=== PATIENT | female | born 1965 ===

== ENCOUNTER 2025-04-19 12:10 | Inpatient (IN) | payer OTHER ==
[~2025-04-19] VITALS: Ht 160 cm; Wt 98.9 kg
[2025-04-19] MEDS ORDERED: COZAAR100 MG PO (13:37)
[2025-04-19] MEDS ORDERED: GLIMEPIRIDE4 M1 PO (13:37)
[2025-04-19] MEDS ORDERED: METFORMIN HCL850 M1 PO (13:37)
[2025-04-19] MEDS ORDERED: HYDROCHLOROTH12.5 M2 PO (13:38)
[2025-04-19] MEDS ORDERED: ZOCOR20 MG PO (13:38)
[2025-04-19] MEDS ORDERED: HORIZANT300 MG PO (13:38)
[2025-04-19] MEDS ORDERED: TRAZODONE HCL150 MG PO (13:38)
[2025-04-19] MEDS ORDERED: ACTOS15 MG PO (13:39)
[2025-04-19] MEDS ORDERED: ACID REDUCER20 M1 PO (13:39)
[2025-04-19] MEDS ORDERED: TOPROL XL25 M1 PO (13:39)
[2025-04-19] MEDS ORDERED: REGLAN5 MG/5 ML PO (13:39)
[2025-05-03] MEDS ORDERED: METRONIDAZOLE/SODIUM CHLORIDE 500 MG/100 ML PIGGYBACK IV ONE (11:26)
[2025-05-03] MEDS ORDERED: CEFTRIAXONE SODIUM 2,000 MG VIAL ONE (11:26)
[2025-05-03] MEDS ORDERED: RINGERS SOLUTION,LACTATED 1,000 ML IV SCH (13:45)
[2025-05-03] MEDS ORDERED: OxyCODONE HCL 5 MG TABLET (ROXICODONE) PO PRN (13:45)
[2025-05-03] MEDS ORDERED: ONDANSETRON HCL 2 MG/ML VIAL IV PRN (13:45)
[2025-05-03] MEDS ORDERED: MORPHINE SULFATE 4 MG/ML VIAL IV PRN (13:45)
[2025-05-03] MEDS ORDERED: ACETAMINOPHEN 500 MG GEL..CAP PO SCH (14:00)
[2025-05-03] MEDS ORDERED: BUPIVACAINE HCL 30 ML VIAL IJ ONE (15:00)
[2025-05-03] MEDS ORDERED: LIDOCAINE HCL 1%/EPINEPHRINE 20ML VIAL IJ ONE (15:00)
[2025-05-03] MEDS ORDERED: HYOSCYAMINE SULFATE 0.125 MG TAB.SUBL SL SCH (17:00)
[2025-05-03] MEDS ORDERED: SIMETHICONE 125 MG CAPSULE PO SCH (17:00)
[2025-05-03] MEDS ORDERED: POLYETHYLENE GLYCOL 3350 17 GM BLIST.PACK PO SCH (17:00)
[2025-05-03] MEDS ORDERED: METOCLOPRAMIDE HCL 5 MG/ML VIAL IV SCH (17:00)
[2025-05-03] MEDS ORDERED: GABAPENTIN 300 MG CAPSULE PO SCH (17:00)
[2025-05-03] MEDS ORDERED: LEVALBUTEROL HCL 0.63 MG/3 ML SOLUTION IH SCH (18:53)
[2025-05-03] MEDS ORDERED: INSULIN LISPRO 1,000 UNIT/10 ML UNITS SUBCUTANEO PRN (19:00)
[2025-05-03] MEDS ORDERED: ENALAPRILAT DIHYDRATE 1.25 MG/ML VIAL IV PRN (19:00)
[2025-05-03] MEDS ORDERED: DEXTROSE 50 % IN WATER 0.5 G/ML DISP.SYRIN IV PRN (19:00)
[2025-05-03] MEDS ORDERED: ENALAPRILAT DIHYDRATE 1.25 MG/ML VIAL IV ONE (19:37)
[2025-05-03 19:55] LABS: BASO % 0.2 % (0.1-1.2); EOS # 0.02 (0.04-0.54); EOS % 0.1 % (0.7-7.0); LYMPH # 1.42 (1.18-3.74); LYMPH % 8.1 % (19.3-53.1); MEAN PLATELET VOLUME 9.50 fl (9.4-12.4); MONO # 0.76 (0.24-0.82); MONO % 4.3 % (4.7-12.5); NEUT # 15.27 (1.56-6.13); NEUT % 86.9 % (34.0-71.1); RED CELL DISTRIBUTION WIDTH 14.5 % (11.6-14.4)
[2025-05-03] MEDS ORDERED: CELECOXIB 200 MG CAPSULE PO SCH (21:00)
[2025-05-03] MEDS ORDERED: FAMOTIDINE/PF 20 MG/2 ML VIAL IV PUSH SCH (21:00)
[2025-05-03] MEDS ORDERED: INSULIN LISPRO 1,000 UNIT/10 ML UNITS SUBCUTANEO ONE (21:43)
[2025-05-03] MEDS ORDERED: ONDANSETRON HCL 2 MG/ML VIAL ONE (21:59)
[2025-05-03] MEDS ORDERED: FAMOTIDINE/PF 20 MG/2 ML VIAL ONE (22:41)
[2025-05-04] MEDS ORDERED: METOCLOPRAMIDE HCL 5 MG/ML VIAL ONE (00:02)
[2025-05-04] MEDS ORDERED: GABAPENTIN 300 MG CAPSULE PO ONE (00:03)
[2025-05-04] MEDS ORDERED: ACETAMINOPHEN 500 MG GEL..CAP PO ONE (00:03)
[2025-05-04] MEDS ORDERED: INSULIN LISPRO 1,000 UNIT/10 ML UNITS SUBCUTANEO ONE (02:49)
[2025-05-04 06:42] LABS: BASO % 0.3 % (0.1-1.2); EOS # 0.02 (0.04-0.54); EOS % 0.2 % (0.7-7.0); LYMPH # 0.87 (1.18-3.74); LYMPH % 7.2 % (19.3-53.1); MEAN PLATELET VOLUME 9.60 fl (9.4-12.4); MONO # 0.60 (0.24-0.82); MONO % 5.0 % (4.7-12.5); NEUT # 10.45 (1.56-6.13); NEUT % 87.0 % (34.0-71.1); RED CELL DISTRIBUTION WIDTH 14.5 % (11.6-14.4)
[2025-05-04 07:47] LABS: BUN CREA RATIO 10.0 (7.0-25.0); CREATININE SERUM 0.8 mg/dL (0.55-1.02); GFR 72.68; GLUCOSE FASTING 185.0 mg/dL (65-100); OSMOLALITY SERUM 286.0 MOSM/KG (275-295)
[2025-05-04 08:33] VITALS: BP 131/71; O2SAT 96
[2025-05-04] MEDS ORDERED: LACTOBACILLUS ACIDOPHILUS 1 CAP CAP PO SCH (09:00)
[2025-05-04] MEDS ORDERED: LOSARTAN POTASSIUM 100 MG TABLET PO SCH (09:00)
[2025-05-04] MEDS ORDERED: METOPROLOL TARTRATE 25 MG TABLET PO SCH (09:00)
[2025-05-04] MEDS ORDERED: HYDROCHLOROTHIAZIDE 12.5 MG CAPSULE PO SCH (09:00)
[2025-05-04 16:00] VITALS: BP 99/55; O2SAT 94
[2025-05-04] MEDS ORDERED: ENOXAPARIN SODIUM 40 MG/0.4 ML SYRINGE SUBCUTANEO SCH (17:00)
[2025-05-04] MEDS ORDERED: SIMVASTATIN 20 MG TABLET PO SCH (17:00)
[2025-05-05 00:58] VITALS: BP 113/67; O2SAT 98
[2025-05-05 06:19] LABS: BASO % 0.5 % (0.1-1.2); EOS # 0.37 (0.04-0.54); EOS % 4.3 % (0.7-7.0); LYMPH # 1.80 (1.18-3.74); LYMPH % 20.8 % (19.3-53.1); MEAN PLATELET VOLUME 9.80 fl (9.4-12.4); MONO # 0.56 (0.24-0.82); MONO % 6.5 % (4.7-12.5); NEUT # 5.88 (1.56-6.13); NEUT % 67.7 % (34.0-71.1); RED CELL DISTRIBUTION WIDTH 14.7 % (11.6-14.4)
[2025-05-05 06:49] LABS: BUN CREA RATIO 10.0 (7.0-25.0); CREATININE SERUM 0.82 mg/dL (0.55-1.02); GFR 70.64; GLUCOSE FASTING 114.0 mg/dL (65-100); OSMOLALITY SERUM 288.0 MOSM/KG (275-295)
[2025-05-05 08:20] VITALS: BP 153/80; O2SAT 99
[2025-05-05] MEDS ORDERED: ENOXAPARIN SODIUM 40 MG/0.4 ML SYRINGE SUBCUTANEO SCH (09:00)
[2025-05-05] MEDS ORDERED: CELECOXIB200 MG PO (14:27)
[2025-05-05] MEDS ORDERED: INTESTINEX680 M1 PO (14:27)
[2025-05-05] MEDS ORDERED: NEURONTIN300 MG PO (14:27)
== END 2025-05-05 15:14 | disposition home or self-care (01) | DRG 331 ==
LOC: SURH 05-03 07:00 → O/R 05-03 11:00 → SURH 05-03 12:15 → SURG 05-03 18:23
PROVIDERS: Internal Medicine Geriatric Medicine; ADMIT Surgery; ATTEND Surgery
PROC: 0DBP4ZZ Excision of Rectum, Percutaneous Endoscopic Approach (ICD-10-PCS; 2025-05-03)
PROC: 0DJD8ZZ Inspection of Lower Intestinal Tract, Via Natural or Artificial Opening Endoscopic (ICD-10-PCS; 2025-05-03)
PROC: 3E0F7GC Introduction of Other Therapeutic Substance into Respiratory Tract, Via Natural or Artificial Opening (ICD-10-PCS; 2025-05-03)
PROC: 0DTN4ZZ Resection of Sigmoid Colon, Percutaneous Endoscopic Approach (ICD-10-PCS; principal; 2025-05-03 07:00)
DX: K57.32 Diverticulitis of large intestine without perforation or abscess without bleeding (principal); E11.9 Type 2 diabetes mellitus without complications; I11.9 Hypertensive heart disease without heart failure; J45.20 Mild intermittent asthma, uncomplicated; E66.9 Obesity, unspecified; I34.1 Nonrheumatic mitral (valve) prolapse